=== PATIENT | male | born 1960 | race African-American/Black ===

== ENCOUNTER 2022-04-23 08:37 | Emergency (ER) | payer MEDICAID ==
[~2022-04-23] VITALS: Ht 175.3 cm; Wt 54.5 kg
[~2022-04-23 08:37] MED LIST: ACET-3207 PO; ASPI-1198 PO; ATOR20TA65 PO; BISA10SU11 PR; CARV6 PO; DOCU-385 PO; FURO40 PO; HYDR-4723 PO
[2022-04-23 09:27] LABS: BASOPHILS % (AUTO) 1.2 % (0.0-2.0); HEMATOCRIT 37.1 % (41-53); HEMOGLOBIN 12.3 g/dL (13.5-17.5); LYMPHOCYTES # (AUTO) 1.5 K/uL (1.0-4.8); LYMPHOCYTES % (AUTO) 31.4 % (22.0-44.0); MEAN CORPUSCULAR HEMOGLOBIN 29.3 pg (26.0-34.0); MEAN CORPUSCULAR HGB CONC 33.2 G/dL (31.0-37.0); MEAN CORPUSCULAR VOLUME 88 fL (80-100); MONOCYTES # (AUTO) 0.6 K/uL (0.1-1.0); MONOCYTES % (AUTO) 12.2 % (2.0-9.0); NEUTROPHILS # (AUTO) 2.6 K/uL (1.8-7.7); NEUTROPHILS % (AUTO) 53.2 % (40.0-70.0); PLATELET COUNT (AUTO) 288 K/uL (150-450); RED CELL DISTRIBUTION WIDTH 15.1 % (11.5-14.5)
[2022-04-23 09:34] LABS: CALCIUM, TOTAL 8.3 mg/dL (8.8-10.5); CREATININE 1.96 mg/dL (0.60-1.30); POTASSIUM 3.9 mmol/L (3.5-5.1)
[2022-04-23 13:25] VITALS: BP 129/90
[2022-04-24] MEDS ORDERED: ACET-2247 PO (12:08)
== END 2022-04-23 13:31 | disposition home or self-care (01) ==
LOC: EMS 08:39
DX: R55 Syncope and collapse (principal); F12.90 Cannabis use, unspecified, uncomplicated; F15.10 Other stimulant abuse, uncomplicated; I82.509 Chronic embolism and thrombosis of unspecified deep veins of unspecified lower extremity; I11.0 Hypertensive heart disease with heart failure; I50.9 Heart failure, unspecified
CPT/HCPCS: 71045; 80048; 85025; 93005; 99285; 36415-L1; 36415-TC

== ENCOUNTER 2022-04-23 14:24 | Emergency (ER) | payer MEDICAID ==
[~2022-04-23] VITALS: Ht 175.3 cm; Wt 58.0 kg
[2022-04-23] MEDS ORDERED: FUROSEMIDE 20 MG TABLET PO ONE (19:15)
[2022-04-23] MEDS ORDERED: ASPIRIN 81 MG CHEWABLE TABLET PO ONE (19:15)
[2022-04-23] MEDS ORDERED: CARVEDILOL 6.25 MG TABLET PO ONE (19:15)
[2022-04-24] MEDS ORDERED: ACET-2247 PO (12:08)
[2022-04-24 12:33] VITALS: BP 132/70
== END 2022-04-24 18:09 | disposition home or self-care (01) ==
LOC: EMS 14:29
DX: F12.90 Cannabis use, unspecified, uncomplicated (principal); G89.29 Other chronic pain; M54.9 Dorsalgia, unspecified; I10 Essential (primary) hypertension; F15.90 Other stimulant use, unspecified, uncomplicated; Z98.890 Other specified postprocedural states
CPT/HCPCS: 99285; Z7502; Z7610